=== PATIENT | male | born 1990 | race African-American/Black ===

== ENCOUNTER 2016-04-22 06:44 | Emergency (ER) | payer OTHER ==
[~2016-04-22] VITALS: Ht 182.9 cm; Wt 73.6 kg
[2016-04-22] MEDS ORDERED: ACETAMINOPHEN 325 MG TABLET PO ONE (07:00)
[2016-04-22] MEDS ORDERED: ACETAMINOPHEN 325 MG TABLET ONE (07:01)
[2016-04-22] MEDS ORDERED: SODIUM CHLORIDE 0.9% 1,000 ML IV ONE (07:30)
[2016-04-22] MEDS ORDERED: KETOROLAC TROMETHAMINE 30 MG/ML VIAL IVP ONE (07:30)
[2016-04-22] MEDS ORDERED: DEXAMETHASONE SOD PHOS 4 MG/ML 5 ML VIAL IM ONE (07:30)
[2016-04-22] MEDS ORDERED: PENICILLIN G BENZATHINE LA 1,200,000 UNITS/2 ML SYRINGE IM ONE (07:30)
[2016-04-22 09:48] VITALS: BP 125/77
== END 2016-04-22 09:50 | disposition home or self-care (01) ==
LOC: EMS 06:49
DX: J02.9 Acute pharyngitis, unspecified (principal)
CPT/HCPCS: 96372; 96374; 99284; J0561; J1100; J1885; J7030